=== PATIENT | female | born 1945 | race Caucasian/White ===

== ENCOUNTER 2016-05-10 10:00 | Day surgery (SDC) | payer MEDICARE ==
[~2016-05-10 10:00] MED LIST: FENTANYL 250 MCG/5 ML AMP IV PRN; LACTATED RINGERS 1,000 ML IV SCH; MIDAZOLAM HCL 5 MG/5 ML VIAL IV PRN; ONDANSETRON 4 MG/2ML 2 ML VIAL IV ONE
[2016-05-10] MEDS ORDERED: IV START KIT ONE (10:04)
[2016-05-10] MEDS ORDERED: LACTATED RINGERS 1,000 ML ONE (10:04)
[2016-05-10] MEDS ORDERED: ONDANSETRON 4 MG/2ML 2 ML VIAL ONE (10:18)
[2016-05-10] MEDS ORDERED: MIDAZOLAM HCL 5 MG/5 ML VIAL ONE (11:04)
[2016-05-10] MEDS ORDERED: FENTANYL 5 ML ONE (11:04)
[2016-05-10] MEDS ORDERED: ONDANSETRON 4 MG ODT TAB ONE (12:51)
[2016-05-10] MEDS ORDERED: ONDANSETRON 4 MG ODT TAB PO ONE (12:53)
--- NOTE | 2016-05-12 12:42 | SURGPATH ---
[facility] [address] [place] [id number] Patient Name: BEA BRIGHT MR#: [id number] : 1945 Gender: F Specimen #: [id number] Collected: 05/10/2016 Received: 05/11/2016 Reported: 05/12/2016 Submitting Phys: NICOLE RIVERA Copy To Phys: [facility] Clinical History / Pre-Operative Diagnosis: RLQ pain, rectal bleeding, constipation Specimen Source / Surgical Procedure Performed: #1 splenic flexure colon polyp, #2 hepatic flexure colon polyp Interpretation: 1. COLON, SPLENIC FLEXURE, POLYP, POLYPECTOMY: - TUBULAR ADENOMA 2. COLON, HEPATIC FLEXURE, POLYP, POLYPECTOMY: - TUBULAR ADENOMA Electronically Signed Out Mariia Ray M.D. Gross Description: 1. The specimen is received in formalin labeled with the patient's name and "splenic flexure colon polyp". The specimen consists of a single fragment of castillo soft tissue, 0.3 cm in greatest dimension. Submitted in toto in one cassette 2. The specimen is received in formalin labeled with the patient's name and "hepatic flexure colon polyp". The specimen consists of a single fragment of castillo soft tissue, 0.5 cm in greatest dimension. Submitted in toto in one cassette VANGIE Spears Microscopic Description: Part 1: A single fragment of colonic mucosa is seen with crowded glands lined by hyperchromatic nuclei. No high-grade dysplasia or carcinoma is seen. Part 2: A single fragment of colonic mucosa is seen with crowded glands lined by hyperchromatic nuclei. No high-grade dysplasia or carcinoma is seen. 1: 91021 2: 77822 D12.3
== END 2016-05-10 13:12 | disposition home or self-care (01) ==
LOC: SDC 10:00
PROVIDERS: ATTEND Internal Medicine Gastroenterology
PROC: 0DBL8ZX Excision of Transverse Colon, Via Natural or Artificial Opening Endoscopic, Diagnostic (ICD-10-PCS; principal; 2016-05-10)
PROC: 0DBL8ZX Excision of Transverse Colon, Via Natural or Artificial Opening Endoscopic, Diagnostic (ICD-10-PCS; 2016-05-10)
DX: R10.31 Right lower quadrant pain (principal); D12.3 Benign neoplasm of transverse colon; K64.1 Second degree hemorrhoids; I10 Essential (primary) hypertension; E55.9 Vitamin D deficiency, unspecified; F41.9 Anxiety disorder, unspecified; R07.89 Other chest pain; Z88.2 Allergy status to sulfonamides; Z88.8 Allergy status to other drugs, medicaments and biological substances; Z79.82 Long term (current) use of aspirin
CPT/HCPCS: 45385; J3010; J2250; J2405; J7120; A9270